=== PATIENT | male | born 1995 | race Caucasian/White ===

== ENCOUNTER 2017-08-30 16:58 | Emergency (ER) | payer OTHER ==
[~2017-08-30] VITALS: Ht 177.8 cm; Wt 78.0 kg
[~2017-08-30 16:58] MED LIST: TYLCOD5S PO; Z.0.NO CURRENT MEDS
[2017-08-30 17:02] VITALS: BP 133/70; PULSE 52; RESP 16; TEMP 97.5; O2SAT 99
[2017-08-30] MEDS ORDERED: IBUPROFEN 600 MG TAB PO ONE (17:30)
--- NOTE | 2017-08-30 17:33 | PD ---
HPI Chief Complaint: Headache Time Seen by Provider: 17:24 Travel History International Travel<30 days: No Contact w/Intl Traveler<30days: No Traveled to known affect area: No History of Present Illness HPI 21-year-old male presents with left-sided headache that is worse with movement. He states it improves when he takes Tylenol or Motrin that he has not taken any since yesterday. He states that his hormone did both a CT and MRI of his brain when his prolactin levels were off and they were okay a couple months ago. He denies any other concurrent complaints. Quality is throbbing. Severity is 7 out of 10. He denies other modifying factors. PFSH Past Medical History Diminished Hearing: No Headaches: Yes Immunizations Current: Yes Tetanus Vaccination: Unknown Influenza Vaccination: No Past Surgical History Tympanostomy Tube: Yes (TUBES IN EARS X 2) Social History Alcohol Use: No Tobacco Use: No Substance Use: No Allergies-Medications (Allergen,Severity, Reaction): Coded Allergies: cefazolin (Unverified Allergy, Severe, 08/30/17) Reported Meds & Prescriptions Reported Meds & Active Scripts Active Tylenol / Codeine Elix Per 5 Ml (Acetaminophen/Codeine Phosphate) 120 Mg/12 Mg Elix 5 Ml PO Q6HPRN Reported No Current Meds (Miscellaneous Medication) Misc Review of Systems Except as stated in HPI: all other systems reviewed are Neg Physical Exam Narrative GENERAL: Well-nourished, well-developed patient. SKIN: Warm and dry. HEAD: Normocephalic and atraumatic. EYES: No injection or drainage. ENT: No nasal drainage noted. NECK: Supple, trachea midline. No meningeal signs CARDIOVASCULAR: Regular rate and rhythm RESPIRATORY: Breath sounds equal bilaterally. No accessory muscle use. GASTROINTESTINAL: Abdomen soft, non-tender, nondistended. EXTREMITIES: No edema. NEUROLOGICAL: Awake and alert. Motor and sensory grossly within normal limits. Normal speech. Equal grasp bilaterally, 5 out of 5 in all 4 extremities Data Data Last Documented VS Vital Signs Date Time Temp Pulse Resp B/P (MAP) Pulse Ox O2 Delivery O2 Flow Rate FiO2 08/30/17 17:22 Room Air 08/30/17 17:02 97.5 52 16 133/70 (91) 99 Orders Orders Ibuprofen (Motrin) (08/30/17 17:30) Ed Discharge Order (08/30/17 17:42) [facility] Medical Decision Making Medical Screen Exam Complete: Yes Emergency Medical Condition: Yes Medical Record Reviewed: Yes (past history confirmed) Differential Diagnosis Tension, migraine, cluster Narrative Course Patient well-appearing with stable vitals with recent MRI brain and CT normal per patient. Will dose with Motrin and reevaluate patient not wanting to wait for revaluation and just wanting to go now, given return instructions Diagnosis Primary Impression: Cephalalgia Patient Instructions: General Instructions Additional Instructions: follow with primary tommorrow, return as needed, alternate tylenol and motrin Med/Other Pt SpecificInfo: No Change to Meds Disposition: 01 DISCHARGE HOME Condition: Stable Stephanie Garcia MD Aug 30, 2017 17:33
== END 2017-08-30 17:55 | disposition home or self-care (01) ==
LOC: PHED 16:58
DX: R51 Headache (principal)
CPT/HCPCS: 99282